=== PATIENT | female | born 1995 | race Caucasian/White ===

== ENCOUNTER 2018-11-08 07:17 | Inpatient (IN) | payer BC ==
[2018-11-08] MEDS ORDERED: Misoprostol 25 MCG (1/4 of 100 MCG) Tab ONE (07:40)
[2018-11-08] MEDS ORDERED: Nalbuphine 20 MG/ML 1 ML Syringe IVPUSH PRN (08:12)
[2018-11-08] MEDS ORDERED: Sodium Chloride 0.9% 10 ML Syringe FLUSH PRN (08:12)
[2018-11-08] MEDS ORDERED: Misoprostol 25 MCG (1/4 of 100 MCG) Tab VAG PRN (08:12)
[2018-11-08] MEDS ORDERED: Ondansetron 4 MG/2 ML SDV IVPUSH PRN ×2 (08:12→14:33)
[2018-11-08] MEDS ORDERED: Oxytocin/Lactated Ringers 10 UNIT/1,000 ML BAG IV SCH ×2 (08:15)
[2018-11-08] MEDS ORDERED: Penicillin G Potassium 5 MILLUNITS in Sodium Chloride 0.9% 100 ML IV ONE ×2 (08:30→12:00)
--- NOTE | 2018-11-08 09:03 | PCM.LDHP ---
L&D History of Present Illness - General Date of Service: 11/08/18 Admit Problem/Dx: Patient Status Order with Admit Dx/Problem 11/08/18 08:13 Patient Status [ADT] Routine Admission Diagnosis/Problem Admission Diagnosis/Problem Source of Information: Patient History Limitations: Reports: No Limitations - History of Present Illness Introduction:: Patient is a 23 y/o at 40 4/7 wks who presents for IOL for post dates. Doing well. No contractions. No LOF. Notes good FM. 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: : 1 Para: 0 LMP (Approximate): Social & Family History - Family History Family Medical History: Noncontributory - Tobacco Use Smoking Status *Q: Never Smoker - Alcohol Use Alcohol Use History: No - Recreational Drug Use Recreational Drug Use: No H&P Review of Systems - Review of Systems: Review Of Systems: See Below General: Reports: No Symptoms Pulmonary: Reports: No Symptoms Cardiovascular: Reports: No Symptoms Gastrointestinal: Reports: No Symptoms Genitourinary: Reports: No Symptoms Musculoskeletal: Reports: No Symptoms Neurological: Reports: No Symptoms L&D Exam - Exam Exam: See Below - Vital Signs Weight: 97.069 kg - OB Specific Contraction Intensity: Irritability Movement: Active Heart Tones: Present Heart Tones per Min: 150 Heart Rate (FHR) Variability: Moderate (6-25 bmp) Presentation: Vertex - Cruz Score Cruz Score Cervix Position: Posterior Cruz Score Consistency: Medium Cruz Score Effacement: 31-50% Cruz Score Dilation: Closed (0.5-1) Cruz Score 's Station: -2 Cruz Score Total: 3 - Exam General: Alert, Oriented, Cooperative Lungs: Clear to Auscultation, Normal Respiratory Effort Cardiovascular: Regular Rate, Regular Rhythm GI/Abdominal Exam: Soft, Non-Tender Genitourinary: Normal external exam Extremities: Normal Inspection Skin: Warm, Dry, Intact - Patient Data Lab Results Last 24 hrs: Laboratory Results - last 24 hr 11/08/18 Range/Units 08:25 WBC 9.60 (3.98-10.04) K/mm3 RBC 4.49 (3.98-5.22) M/mm3 Hgb 11.4 (11.2-15.7) gm/L Hct 35.7 (34.1-44.9) % MCV 79.5 (79.4-94.8) fl MCH 25.4 L (25.6-32.2) pg MCHC 31.9 L (32.2-35.5) g/dl RDW Std Deviation 47.2 H (36.4-46.3) fL Plt Count 299 (182-369) K/mm3 MPV 10.6 (9.4-12.3) fl Result Diagrams: 11/08/18 08:25 - Problem List (1) Postmaturity , 40-42 weeks gestation SNOMED Code(s): 80498187, 130599224 ICD Code: O48.0 - POST-TERM Status: Acute Current Visit: Yes (2) GBS (group B Streptococcus carrier), +RV culture, currently SNOMED Code(s): 1811866488567, 684377887, 5858324226240 ICD Code: O99.820 - STREPTOCOCCUS B CARRIER STATE COMPLICATING Status: Acute Current Visit: Yes Problem List Initiated/Reviewed/Updated: Yes Orders Last 24hrs: Active Orders 24 hr Category Date Time Status Patient Status [ADT] Routine ADT 11/08/18 08:13 Active Activity as Tolerated [RC] PFP Care 11/08/18 08:13 Active Communication Order [RC] ASDIRECTED Care 11/08/18 08:13 Active Communication Order [RC] ASDIRECTED Care 11/08/18 08:13 Active Communication Order [RC] ASDIRECTED Care 11/08/18 08:13 Active Communication Order [RC] ASDIRECTED Care 11/08/18 08:13 Active Heart Tones [RC] ASDIRECTED Care 11/08/18 08:14 Active Monitoring [RC] INTERMITTENT Care 11/08/18 08:13 Active Non Stress Test [RC] PER UNIT ROUTINE Care 11/08/18 08:13 Active Notify Provider [RC] ASDIRECTED Care 11/08/18 08:13 Active Notify Provider [RC] PRN Care 11/08/18 08:13 Active Peripheral IV Care [RC] . DIRECTED Care 11/08/18 08:14 Active Vaginal Exam [RC] ASDIRECTED Care 11/08/18 08:13 Active Vital Signs [RC] ASDIRECTED Care 11/08/18 08:13 Active Regular Diet [DIET] Diet 11/08/18 Breakfast Active RAPID PLASMA REAGIN,RPR [CHEM] Routine Lab 11/08/18 08:25 Received TYPE AND SCREEN [BBK] Routine Lab 11/08/18 08:25 Received Lactated Ringers [Ringers, Lactated] 1,000 ml Med 11/08/18 08:15 Active IV ASDIRECTED Nalbuphine [Nubain] Med 11/08/18 08:12 Active 10 mg IVPUSH Q2H PRN Ondansetron [Zofran] Med 11/08/18 08:12 Active 4 mg IVPUSH Q4H PRN Oxytocin/Lactated Ringers [Pitocin in LR 10 Units/1,000 Med 11/08/18 08:15 Active ML] 10 unit in 1,000 ml IV .CONTINUOUS Oxytocin/Lactated Ringers [Pitocin in LR 10 Units/1,000 Med 11/08/18 08:15 Active ML] 10 unit in 1,000 ml IV TITRATE Penicillin G Potassium [Pfizerpen] 2.5 millunits Med 11/08/18 12:30 Active Sodium Chloride 0.9% [Normal Saline] 100 ml IV Q4H Penicillin G Potassium [Pfizerpen] 5 millunits Med 11/08/18 08:30 Active Sodium Chloride 0.9% [Normal Saline] 100 ml IV ONETIME Sodium Chloride 0.9% [Saline Flush] Med 11/08/18 08:12 Active 10 ml FLUSH ASDIRECTED PRN miSOPROStol [Cytotec] Med 11/08/18 08:12 Active 25 mcg VAG Q4H PRN Electronic Heart Tones Ext w TOCO [WOMSER] Oth 11/08/18 08:13 Ordered Routine Electronic Heart Tones Internal [WOMSER] Per Unit Oth 11/08/18 08:13 Ordered Routine Peripheral IV Insertion Adult [OM.PC] Routine Oth 11/08/18 08:13 Ordered Resuscitation Status Routine Resus Stat 11/08/18 08:12 Ordered Medication Orders Lactated Ringer's (Ringers, Lactated) 1,000 mls @ 40 mls/hr IV ASDIRECTED MP Oxytocin/Lactated Ringer's (Pitocin In Lr 10 Units/1,000 Ml) 10 unit in 1,000 mls @ 12 mls/hr IV TITRATE MP; Protocol Oxytocin/Lactated Ringer's (Pitocin In Lr 10 Units/1,000 Ml) 10 unit in 1,000 mls @ 500 mls/hr IV .CONTINUOUS MP Penicillin G Potassium 5 (millunits/ Sodium Chloride) 100 mls @ 55 mls/hr IV ONETIME ONE Stop: 11/08/18 10:19 Penicillin G Potassium 2.5 (millunits/ Sodium Chloride) 100 mls @ 55 mls/hr IV Q4H MP Misoprostol (Cytotec) 25 mcg VAG Q4H PRN PRN Reason: cervical ripening Nalbuphine HCl (Nubain) 10 mg IVPUSH Q2H PRN PRN Reason: pain Ondansetron HCl (Zofran) 4 mg IVPUSH Q4H PRN PRN Reason: Nausea/Vomiting Sodium Chloride (Saline Flush) 10 ml FLUSH ASDIRECTED PRN PRN Reason: Keep Vein Open Assessment/Plan Comment:: 23 y/o at 40 4/7 wks who presents for IOL * Labs * GBS positive, will eventually start PCN for IOL * Cytotec placed Will attempt art bulb placement later * Pain management per patient preference * Anticipate
--- NOTE | 2018-11-08 12:17 | PCM.PNLD ---
Labor Progress Note - VS & Meds Vital Signs: Last Vital Signs Temp 36.3 C 11/08/18 08:13 Pulse 86 11/08/18 08:13 Resp 18 11/08/18 08:13 BP 132/76 11/08/18 08:13 Pulse Ox Active Medications: Current Medications Lactated Ringer's (Ringers, Lactated) 1,000 mls @ 40 mls/hr IV ASDIRECTED MP Oxytocin/Lactated Ringer's (Pitocin In Lr 10 Units/1,000 Ml) 10 unit in 1,000 mls @ 12 mls/hr IV TITRATE MP; Protocol Oxytocin/Lactated Ringer's (Pitocin In Lr 10 Units/1,000 Ml) 10 unit in 1,000 mls @ 500 mls/hr IV .CONTINUOUS MP Penicillin G Potassium 5 (millunits/ Sodium Chloride) 100 mls @ 55 mls/hr IV ONETIME ONE Stop: 11/08/18 13:49 Penicillin G Potassium 2.5 (millunits/ Sodium Chloride) 100 mls @ 55 mls/hr IV Q4H MP Misoprostol (Cytotec) 25 mcg VAG Q4H PRN PRN Reason: cervical ripening Nalbuphine HCl (Nubain) 10 mg IVPUSH Q2H PRN PRN Reason: pain Ondansetron HCl (Zofran) 4 mg IVPUSH Q4H PRN PRN Reason: Nausea/Vomiting Sodium Chloride (Saline Flush) 10 ml FLUSH ASDIRECTED PRN PRN Reason: Keep Vein Open Discontinued Medications Penicillin G Potassium 5 (millunits/ Sodium Chloride) 100 mls @ 55 mls/hr IV ONETIME ONE Stop: 11/08/18 10:19 Penicillin G Potassium 2.5 (millunits/ Sodium Chloride) 100 mls @ 55 mls/hr IV Q4H MP Misoprostol (Cytotec) Confirm Administered Dose 25 mcg .ROUTE .STK-MED ONE Stop: 11/08/18 07:41 Last Admin: 11/08/18 12:07 Dose: Not Given - Uterine Contractions Uterine Monitoring Mode: External [place] Contraction Intensity: Mild to Moderate Uterine Resting Tone: Soft - Monitoring Monitor Mode: External Ultrasound Heart Rate (FHR) Baseline: 150 Heart Rate (FHR) Variability: Moderate (6-25 bmp) Accelerations: Present, 15x15 Decelerations: Late (rare), Variable Strip Review: Category II - Vaginal Exam Dilation (cm): 2 Effacement (Percent): 75 Station: -2 Cervical Position: Midposition - Labor Progress (Free Text) Labor Progress: Patient with good thinning and rotation of cervix with 1 dose of cytotec. Has had some intermittent late decelerations. Due to this and good change will move on to art bulb placement and pitocin initiation. Art bulb placed without incident
[2018-11-08] MEDS ORDERED: Penicillin G Potassium 2.5 MILLUNITS in Sodium Chloride 0.9% 100 ML IV SCH (12:30)
[2018-11-08] MEDS: Lactated Ringers 1,000 ML IV SCH ×4 (12:41→17:18)
[2018-11-08] MEDS ORDERED: diphenhydrAMINE 50 MG/ML SDV IVPUSH PRN (14:33)
[2018-11-08] MEDS ORDERED: ePHEDrine 50 MG/ML SDV IVPUSH PRN (14:33)
[2018-11-08] MEDS ORDERED: fentaNYL 100 MCG/2 ML SDV EPIDUR PRN (14:33)
[2018-11-08] MEDS ORDERED: fentaNYL 100 MCG/2 ML SDV ONE (14:35)
[2018-11-08] MEDS ORDERED: fentaNYL/Bupivacaine-NS 2 MCG/ML-0.125%/PF 100 ML Bag EP SCH (14:45)
[2018-11-08] MEDS: Penicillin G Potassium 2.5 MILLUNITS in Sodium Chloride 0.9% 100 ML IV SCH ×2 (17:00→20:29)
--- NOTE | 2018-11-08 17:09 | PCM.PNLD ---
Labor Progress Note - VS & Meds Vital Signs: Last Vital Signs Temp 36.3 C 11/08/18 08:13 Pulse 86 11/08/18 08:13 Resp 18 11/08/18 08:13 BP 132/76 11/08/18 08:13 Pulse Ox Active Medications: Current Medications Diphenhydramine HCl (Benadryl) 25 mg IVPUSH Q6H PRN PRN Reason: Pruritis Ephedrine Sulfate (Ephedrine Sulfate) 5 mg IVPUSH ASDIRECTED PRN PRN Reason: Hypotension Fentanyl (Sublimaze) 100 mcg EPIDUR Q3H PRN PRN Reason: Pain Last Admin: 11/08/18 14:59 Dose: 100 mcg Fentanyl/Bupivacaine HCl (Nsevxxth-Qmcoo-Du 2 Mcg/Ml-0.125%) 100 ml EP ASDIRECTED MP Last Admin: 11/08/18 14:59 Dose: 100 ml Lactated Ringer's (Ringers, Lactated) 1,000 mls @ 40 mls/hr IV ASDIRECTED PM Last Admin: 11/08/18 15:26 Dose: 999 mls/hr Oxytocin/Lactated Ringer's (Pitocin In Lr 10 Units/1,000 Ml) 10 unit in 1,000 mls @ 12 mls/hr IV TITRATE MP; Protocol Last Titration: 11/08/18 15:36 Dose: 2 munits/min, 12 mls/hr Oxytocin/Lactated Ringer's (Pitocin In Lr 10 Units/1,000 Ml) 10 unit in 1,000 mls @ 500 mls/hr IV .CONTINUOUS MP Penicillin G Potassium 2.5 (millunits/ Sodium Chloride) 100 mls @ 55 mls/hr IV Q4H MP Nalbuphine HCl (Nubain) 10 mg IVPUSH Q2H PRN PRN Reason: pain Ondansetron HCl (Zofran) 4 mg IVPUSH Q4H PRN PRN Reason: Nausea/Vomiting Ondansetron HCl (Zofran) 4 mg IVPUSH ONETIME PRN PRN Reason: Nausea/Vomiting Sodium Chloride (Saline Flush) 10 ml FLUSH ASDIRECTED PRN PRN Reason: Keep Vein Open Discontinued Medications Fentanyl (Sublimaze) Confirm Administered Dose 100 mcg .ROUTE .STK-MED ONE Stop: 11/08/18 14:36 Last Admin: 11/08/18 15:27 Dose: Not Given Penicillin G Potassium 5 (millunits/ Sodium Chloride) 100 mls @ 55 mls/hr IV ONETIME ONE Stop: 11/08/18 10:19 Last Admin: 11/08/18 14:20 Dose: Not Given Penicillin G Potassium 2.5 (millunits/ Sodium Chloride) 100 mls @ 55 mls/hr IV Q4H [facility] Penicillin G Potassium 5 (millunits/ Sodium Chloride) 100 mls @ 55 mls/hr IV ONETIME ONE Stop: 11/08/18 13:49 Last Admin: 11/08/18 12:41 Dose: 55 mls/hr Misoprostol (Cytotec) Confirm Administered Dose 25 mcg .ROUTE .STK-MED ONE Stop: 11/08/18 07:41 Last Admin: 11/08/18 12:07 Dose: Not Given Misoprostol (Cytotec) 25 mcg VAG Q4H PRN PRN Reason: cervical ripening Last Admin: 11/08/18 07:40 Dose: 25 mcg - Uterine Contractions Uterine Monitoring Mode: External [place] Contraction Intensity: Moderate Uterine Resting Tone: Soft - Monitoring Monitor Mode: External Ultrasound Heart Rate (FHR) Baseline: 145 Heart Rate (FHR) Variability: Moderate (6-25 bmp) Accelerations: Present, 15x15 Decelerations: Late, Intermittent (<50% x 20 min) Strip Review: Category II - Vaginal Exam Dilation (cm): 4 Effacement (Percent): 75 Station: -1 Cervical Position: Midposition - Labor Progress (Free Text) Labor Progress: After patient received epidural had a few deep variables. Pitocin discontinued by nursing staff. Once baby recovered pitocin attempted to be restarted, but then with a string of lates/variables. Discontinued again. Monitored baby for a time without augmentation and now have performed AROM with very scant fluid released and placement of IUPC. Will continue to monitor closely
--- NOTE | 2018-11-08 17:52 | PCM.SN ---
- Free Text/Narrative Note: 1750 Patient feeling more pressure. Exam similar to previous. tracing significantly improved. Now with early decelerations, but no further intermittent late decelerations or variables. Contraction pattern has been close to adequate. Will continue to monitor closely. Will see if pitocin needs to be reinitiated later, but for right now will continue to hold Sravani Irving MD
[2018-11-08] MEDS ORDERED: Bupivacaine 0.25% 10 ML SDV ONE (22:00)
[2018-11-08] MEDS ORDERED: Lidocaine 1.5% with EPINEPHrine 1:200,000 5 ML Amp ONE (22:00)
--- NOTE | 2018-11-08 22:06 | PCM.DEL ---
L & D Note - General Info Date of Service: 11/08/18 - Delivery Note Labor: Induced by ARM, Induced by Oxytocin Cervical Ripening Method: Balloon Device, Misoprostil Delivery Outcome: Livebirth Infant Delivery Method: Spontaneous Vaginal Delivery-Single Delivery Mode: Spontaneous Presentation: Right Occiput Anterior (ARABELLA) Nuchal Cord: None Anesthesia Type: Epidural Amniotic Fluid Description: Meconium Stained Episiotomy Type: None Laceration: 2nd Degree, Perineal Suture type: Vicryl Suture size: 2-0 Placenta: Intact, Spontaneous Cord: 3 Vessels Estimated Blood Loss: 200 [place]: Bulb Syringe, Stimulated, Warmed, [place] Used, Warmer Used Delivery Comments (Free Text/Narrative):: Patient found to be complete and began pushing. With maternal pushing effort head delivered from ARABELLA presentation. No nuchal cord present. With gentle downward traction the shoulders and body delivered. placed on maternal abdomen. Cord clamped and cut. Cord blood obtained. Placenta allowed time to separate and expelled intact. Inspection of the perineum showed a 2nd degree laceration which was repaired with a 2-0 vicryl in the typical fashion. - General Info Date of Service: 11/08/18 - Patient Data Vitals - Most Recent: Last Vital Signs Temp 36.3 C 11/08/18 08:13 Pulse 86 11/08/18 08:13 Resp 18 11/08/18 08:13 BP 132/76 11/08/18 08:13 Pulse Ox Weight - Most Recent: 97.069 kg I&O - Last 24 Hours: Intake & Output 11/08/18 11/08/18 11/08/18 06:59 14:59 22:59 Intake Total 4100 Output Total 250 Balance 3850 Lab Results Last 24 Hours: Laboratory Results - last 24 hr 11/08/18 11/08/18 Range/Units 08:25 08:25 WBC 9.60 (3.98-10.04) K/mm3 RBC 4.49 (3.98-5.22) M/mm3 Hgb 11.4 (11.2-15.7) gm/L Hct 35.7 (34.1-44.9) % MCV 79.5 (79.4-94.8) fl MCH 25.4 L (25.6-32.2) pg MCHC 31.9 L (32.2-35.5) g/dl RDW Std Deviation 47.2 H (36.4-46.3) fL Plt Count 299 (182-369) K/mm3 MPV 10.6 (9.4-12.3) fl Blood Type O POSITIVE Gel Antibody Screen Negative Med Orders - Current: Current Medications Diphenhydramine HCl (Benadryl) 25 mg IVPUSH Q6H PRN PRN Reason: Pruritis Ephedrine Sulfate (Ephedrine Sulfate) 5 mg IVPUSH ASDIRECTED PRN PRN Reason: Hypotension Fentanyl (Sublimaze) 100 mcg EPIDUR Q3H PRN PRN Reason: Pain Last Admin: 11/08/18 14:59 Dose: 100 mcg Fentanyl/Bupivacaine HCl (Pffckzsp-Mjuke-Bp 2 Mcg/Ml-0.125%) 100 ml EP ASDIRECTED MP Last Admin: 11/08/18 14:59 Dose: 100 ml Lactated Ringer's (Ringers, Lactated) 1,000 mls @ 40 mls/hr IV ASDIRECTED MP Last Admin: 11/08/18 17:18 Dose: 999 mls/hr Oxytocin/Lactated Ringer's (Pitocin In Lr 10 Units/1,000 Ml) 10 unit in 1,000 mls @ 12 mls/hr IV TITRATE MP; Protocol Last Titration: 11/08/18 21:47 Dose: 500 mls/hr Oxytocin/Lactated Ringer's (Pitocin In Lr 10 Units/1,000 Ml) 10 unit in 1,000 mls @ 500 mls/hr IV .CONTINUOUS MP Penicillin G Potassium 2.5 (millunits/ Sodium Chloride) 100 mls @ 55 mls/hr IV Q4H MP Last Admin: 11/08/18 20:29 Dose: 55 mls/hr Nalbuphine HCl (Nubain) 10 mg IVPUSH Q2H PRN PRN Reason: pain Ondansetron HCl (Zofran) 4 mg IVPUSH Q4H PRN PRN Reason: Nausea/Vomiting Ondansetron HCl (Zofran) 4 mg IVPUSH ONETIME PRN PRN Reason: Nausea/Vomiting Sodium Chloride (Saline Flush) 10 ml FLUSH ASDIRECTED PRN PRN Reason: Keep Vein Open Discontinued Medications Fentanyl (Sublimaze) Confirm Administered Dose 100 mcg .ROUTE .[facility]-MED ONE Stop: 11/08/18 14:36 Last Admin: 11/08/18 15:27 Dose: Not Given Penicillin G Potassium 5 (millunits/ Sodium Chloride) 100 mls @ 55 mls/hr IV ONETIME ONE Stop: 11/08/18 10:19 Last Admin: 11/08/18 14:20 Dose: Not Given Penicillin G Potassium 2.5 (millunits/ Sodium Chloride) 100 mls @ 55 mls/hr IV Q4H MP Penicillin G Potassium 5 (millunits/ Sodium Chloride) 100 mls @ 55 mls/hr IV ONETIME ONE Stop: 11/08/18 13:49 Last Admin: 11/08/18 12:41 Dose: 55 mls/hr Misoprostol (Cytotec) Confirm Administered Dose 25 mcg .ROUTE .STK-MED ONE Stop: 11/08/18 07:41 Last Admin: 11/08/18 12:07 Dose: Not Given Misoprostol (Cytotec) 25 mcg VAG Q4H PRN PRN Reason: cervical ripening Last Admin: 11/08/18 07:40 Dose: 25 mcg - Problem List & Annotations (1) Postmaturity , 40-42 weeks gestation SNOMED Code(s): 30452410, 487555019 Code(s): O48.0 - POST-TERM Status: Acute Current Visit: Yes (2) GBS (group B Streptococcus carrier), +RV culture, currently SNOMED Code(s): 3828533426791, 273923481, 3153109752909 Code(s): O99.820 - STREPTOCOCCUS B CARRIER STATE COMPLICATING Status: Acute Current Visit: Yes (3) Vaginal delivery SNOMED Code(s): 120015307 Code(s): O80 - ENCOUNTER FOR FULL-TERM UNCOMPLICATED DELIVERY Status: Acute Current Visit: Yes - Problem List Review Problem List Initiated/Reviewed/Updated: Yes - My Orders Last 24 Hours: My Active Orders 11/08/18 08:12 Nalbuphine [Nubain] 10 mg IVPUSH Q2H PRN Ondansetron [Zofran] 4 mg IVPUSH Q4H PRN Sodium Chloride 0.9% [Saline Flush] 10 ml FLUSH ASDIRECTED PRN Resuscitation Status Routine 11/08/18 08:13 Patient Status [ADT] Routine Activity as Tolerated [RC] PFP Communication Order [RC] ASDIRECTED Communication Order [RC] ASDIRECTED Communication Order [RC] ASDIRECTED Communication Order [RC] ASDIRECTED Monitoring [RC] INTERMITTENT Non Stress Test [RC] PER UNIT ROUTINE Notify Provider [RC] ASDIRECTED Notify Provider [RC] PRN Vaginal Exam [RC] ASDIRECTED Vital Signs [RC] ASDIRECTED Electronic Heart Tones Ext w TOCO [WOMSER] Routine Electronic Heart Tones Internal [WOMSER] Per Unit Routine Peripheral IV Insertion Adult [OM.PC] Routine 11/08/18 08:14 Heart Tones [RC] ASDIRECTED Peripheral IV Care [RC] . DIRECTED 11/08/18 08:15 Lactated Ringers [Ringers, Lactated] 1,000 ml IV ASDIRECTED Oxytocin/Lactated Ringers [Pitocin in LR 10 Units/1,000 ML] 10 unit in 1,000 ml IV .CONTINUOUS Oxytocin/Lactated Ringers [Pitocin in LR 10 Units/1,000 ML] 10 unit in 1,000 ml IV TITRATE 11/08/18 08:25 PATIENT RETYPE [BBK] Routine RAPID PLASMA REAGIN,RPR [CHEM] Routine TYPE AND SCREEN [BBK] Routine 11/08/18 16:00 Penicillin G Potassium [Pfizerpen] 2.5 millunits Sodium Chloride 0.9% [Normal Saline] 100 ml IV Q4H 11/08/18 Breakfast Regular Diet [DIET] - Assessment Assessment:: 23 y/o G1 now P1001 PPD#0 from at 40 4/7 wks - Plan Plan:: * Routine cares * encourage breast feeding * Discharge home tomorrow
[2018-11-08] MEDS ORDERED: Witch Hazel Medicated Pads 100/Jar TOP PRN (22:23)
[2018-11-08] MEDS ORDERED: Benzocaine/Menthol 20%-0.5% Spray 56 GM Canister TOP PRN (22:23)
[2018-11-08] MEDS ORDERED: Ibuprofen 600 MG Tab PO PRN (22:23)
[2018-11-08] MEDS ORDERED: Docusate Sodium 100 MG Cap PO PRN (22:23)
[2018-11-08] MEDS ORDERED: Lanolin 100% Cream 7 GM Tube TOP PRN (22:23)
[2018-11-08] MEDS ORDERED: Acetaminophen 325 MG Tab PO PRN (22:23)
--- NOTE | 2018-11-09 09:03 | PCM.PREANE ---
Preanesthetic Assessment - Procedure Proposed Procedure: ANGELIKA - Anesthesia/Transfusion/Family Hx Anesthesia History: Prior Anesthesia Without Reaction Family History of Anesthesia Reaction: No Transfusion History: No Prior Transfusion(s) - Review of Systems General: No Symptoms Pulmonary: No Symptoms Cardiovascular: No Symptoms Gastrointestinal: No Symptoms Neurological: No Symptoms Other: Reports: None - Physical Assessment NPO Status Date: 11/08/18 NPO Status Time: 12:00 Pulse: 76 O2 Sat by Pulse Oximetry: 98 Respiratory Rate: 18 Blood Pressure: 128/61 Temperature: 36.9 C Vital Signs: Last Vital Signs Temp 36.9 C 11/09/18 06:34 Pulse 76 11/09/18 06:34 Resp 18 11/09/18 06:34 BP 128/61 11/09/18 06:34 Pulse Ox 98 11/09/18 06:34 Height: 1.78 m Weight: 97.069 kg ASA Class: 2 Mental Status: Alert & Oriented x3 Airway Class: Mallampati = 2 Dentition: Reports: Normal Dentition Thyro-Mental Finger Breadths: 3 Mouth Opening Finger Breadths: 3 ROM/Head Extension: Full Lungs: Clear to Auscultation, Normal Respiratory Effort Cardiovascular: Regular Rate, Regular Rhythm - Lab Values: Laboratory Last Values WBC 9.60 K/mm3 (3.98-10.04) 11/08/18 08:25 RBC 4.49 M/mm3 (3.98-5.22) 11/08/18 08:25 Hgb 11.4 gm/L (11.2-15.7) 11/08/18 08:25 Hct 35.7 % (34.1-44.9) 11/08/18 08:25 MCV 79.5 fl (79.4-94.8) 11/08/18 08:25 MCH 25.4 pg (25.6-32.2) L 11/08/18 08:25 MCHC 31.9 g/dl (32.2-35.5) L 11/08/18 08:25 RDW Std Deviation 47.2 fL (36.4-46.3) H 11/08/18 08:25 Plt Count 299 K/mm3 (182-369) 11/08/18 08:25 MPV 10.6 fl (9.4-12.3) 11/08/18 08:25 Blood Type O POSITIVE 11/08/18 08:25 Gel Antibody Screen Negative 11/08/18 08:25 - Allergies Allergies/Adverse Reactions: Allergies Allergy/AdvReac Type Severity Reaction Status Date / Time No Known Allergies Allergy Verified 11/08/18 08:21 - Blood Blood Available: No Product(s) Available: None - Anesthesia Plan Pre-Op Medication Ordered: None - Acknowledgements Anesthesia Type Planned: Epidural Pt an Appropriate Candidate for the Planned Anesthesia: Yes Alternatives and Risks of Anesthesia Discussed w Pt/Guardian: Yes Pt/Guardian Understands and Agrees with Anesthesia Plan: Yes PreAnesthesia Questionnaire - Past Health History Medical/Surgical History: Denies Medical/Surgical History QA TECH History: Reports: - SUBSTANCE USE Smoking Status *Q: Never Smoker Recreational Drug Use History: No - HOME MEDS Home Medications: Home Meds Vits #93/Iron Fum/FA [ Formula Tablet] 1 tab PO DAILY 11/08/18 [History] - CURRENT (IN HOUSE) MEDS Current Meds: Current Medications Acetaminophen (Tylenol) 650 mg PO Q4H PRN PRN Reason: mild pain or fever Benzocaine/Menthol (Dermoplast Pain Relief [place]) 0 gm TOP ASDIRECTED PRN PRN Reason: Perineal Comfort Measure Last Admin: 11/08/18 23:35 Dose: 1 applic Docusate Sodium (Colace) 100 mg PO BID PRN PRN Reason: Constipation Emollient Ointment (Lansinoh Hpa) 0 gm TOP ASDIRECTED PRN PRN Reason: Sore Nipples Ibuprofen (Motrin) 600 mg PO Q6H PRN PRN Reason: Mild pain or fever [place] (Tucks) 1 pad TOP ASDIRECTED PRN PRN Reason: Hemorrhoid pain Last Admin: 11/08/18 23:35 Dose: 1 pad Discontinued Medications Diphenhydramine HCl (Benadryl) 25 mg IVPUSH Q6H PRN PRN Reason: Pruritis Ephedrine Sulfate (Ephedrine Sulfate) 5 mg IVPUSH ASDIRECTED PRN PRN Reason: Hypotension Fentanyl (Sublimaze) 100 mcg EPIDUR Q3H PRN PRN Reason: Pain Last Admin: 11/08/18 14:59 Dose: 100 mcg Fentanyl (Sublimaze) Confirm Administered Dose 100 mcg .ROUTE .STK-MED ONE Stop: 11/08/18 14:36 Last Admin: 11/08/18 15:27 Dose: Not Given Fentanyl/Bupivacaine HCl (Rwywpiqu-Wcvbg-Vs 2 Mcg/Ml-0.125%) 100 ml EP ASDIRECTED [facility] Last Admin: 11/08/18 14:59 Dose: 100 ml Lactated Ringer's (Ringers, Lactated) 1,000 mls @ 40 mls/hr IV ASDIRECTED [facility] Last Admin: 11/08/18 17:18 Dose: 999 mls/hr Oxytocin/Lactated Ringer's (Pitocin In Lr 10 Units/1,000 Ml) 10 unit in 1,000 mls @ 12 mls/hr IV TITRATE MP; Protocol Last Titration: 11/08/18 21:47 Dose: 500 mls/hr Oxytocin/Lactated Ringer's (Pitocin In Lr 10 Units/1,000 Ml) 10 unit in 1,000 mls @ 500 mls/hr IV .CONTINUOUS MP Penicillin G Potassium 5 (millunits/ Sodium Chloride) 100 mls @ 55 mls/hr IV ONETIME ONE Stop: 11/08/18 10:19 Last Admin: 11/08/18 14:20 Dose: Not Given Penicillin G Potassium 2.5 (millunits/ Sodium Chloride) 100 mls @ 55 mls/hr IV Q4H MP Penicillin G Potassium 5 (millunits/ Sodium Chloride) 100 mls @ 55 mls/hr IV ONETIME ONE Stop: 11/08/18 13:49 Last Admin: 11/08/18 12:41 Dose: 55 mls/hr Penicillin G Potassium 2.5 (millunits/ Sodium Chloride) 100 mls @ 55 mls/hr IV Q4H [facility] Last Admin: 11/08/18 20:29 Dose: 55 mls/hr Misoprostol (Cytotec) Confirm Administered Dose 25 mcg .ROUTE .STK-MED ONE Stop: 11/08/18 07:41 Last Admin: 11/08/18 12:07 Dose: Not Given Misoprostol (Cytotec) 25 mcg VAG Q4H PRN PRN Reason: cervical ripening Last Admin: 11/08/18 07:40 Dose: 25 mcg Nalbuphine HCl (Nubain) 10 mg IVPUSH Q2H PRN PRN Reason: pain Ondansetron HCl (Zofran) 4 mg IVPUSH Q4H PRN PRN Reason: Nausea/Vomiting Ondansetron HCl (Zofran) 4 mg IVPUSH ONETIME PRN PRN Reason: Nausea/Vomiting Sodium Chloride (Saline Flush) 10 ml FLUSH ASDIRECTED PRN PRN Reason: Keep Vein Open
--- NOTE | 2018-11-09 09:19 | PCM48HPAN ---
Post Anesthesia Note - EVALUATION WITHIN 48HRS OF ANESTHETIC Vital Signs in Normal Range: Yes Patient Participated in Evaluation: Yes Respiratory Function Stable: Yes Airway Patent: Yes Cardiovascular Function Stable: Yes Hydration Status Stable: Yes Pain Control Satisfactory: Yes Nausea and Vomiting Control Satisfactory: Yes Mental Status Recovered: Yes
--- NOTE | 2018-11-09 09:20 | PCM.PNPP ---
- General Info Date of Service: 11/09/18 Functional Status: Reports: Pain Controlled, Tolerating Diet, Ambulating, Urinating - Review of Systems General: Reports: No Symptoms Pulmonary: Reports: No Symptoms Cardiovascular: Reports: No Symptoms Gastrointestinal: Reports: No Symptoms Genitourinary: Reports: No Symptoms Musculoskeletal: Reports: No Symptoms Neurological: Reports: No Symptoms - Patient Data Vital Signs - Most Recent: Last Vital Signs Temp 36.9 C 11/09/18 09:02 Pulse 76 11/09/18 09:02 Resp 18 11/09/18 09:02 BP 128/61 11/09/18 09:02 Pulse Ox 98 11/09/18 09:02 Weight - Most Recent: 97.069 kg I&O - Last 24 Hours: Intake & Output 11/08/18 11/09/18 11/09/18 22:59 06:59 14:59 Intake Total 4340 Output Total 250 Balance 4090 Lab Results - Last 24 Hours: Laboratory Results - last 24 hr 11/08/18 Range/Units 08:25 Blood Type O POSITIVE Gel Antibody Screen Negative Med Orders - Current: Current Medications Acetaminophen (Tylenol) 650 mg PO Q4H PRN PRN Reason: mild pain or fever Benzocaine/Menthol (Dermoplast Pain Relief [place]) 0 gm TOP ASDIRECTED PRN PRN Reason: Perineal Comfort Measure Last Admin: 11/08/18 23:35 Dose: 1 applic Docusate Sodium (Colace) 100 mg PO BID PRN PRN Reason: Constipation Emollient Ointment (Lansinoh Hpa) 0 gm TOP ASDIRECTED PRN PRN Reason: Sore Nipples Ibuprofen (Motrin) 600 mg PO Q6H PRN PRN Reason: Mild pain or fever [place] (Tucks) 1 pad TOP ASDIRECTED PRN PRN Reason: Hemorrhoid pain Last Admin: 11/08/18 23:35 Dose: 1 pad Discontinued Medications Diphenhydramine HCl (Benadryl) 25 mg IVPUSH Q6H PRN PRN Reason: Pruritis Ephedrine Sulfate (Ephedrine Sulfate) 5 mg IVPUSH ASDIRECTED PRN PRN Reason: Hypotension Fentanyl (Sublimaze) 100 mcg EPIDUR Q3H PRN PRN Reason: Pain Last Admin: 11/08/18 14:59 Dose: 100 mcg Fentanyl (Sublimaze) Confirm Administered Dose 100 mcg .ROUTE .STK-MED ONE Stop: 11/08/18 14:36 Last Admin: 11/08/18 15:27 Dose: Not Given Fentanyl/Bupivacaine HCl (Natnqjoc-Emcxv-Yd 2 Mcg/Ml-0.125%) 100 ml EP ASDIRECTED MP Last Admin: 11/08/18 14:59 Dose: 100 ml Lactated Ringer's (Ringers, Lactated) 1,000 mls @ 40 mls/hr IV ASDIRECTED MP Last Admin: 11/08/18 17:18 Dose: 999 mls/hr Oxytocin/Lactated Ringer's (Pitocin In Lr 10 Units/1,000 Ml) 10 unit in 1,000 mls @ 12 mls/hr IV TITRATE MP; Protocol Last Titration: 11/08/18 21:47 Dose: 500 mls/hr Oxytocin/Lactated Ringer's (Pitocin In Lr 10 Units/1,000 Ml) 10 unit in 1,000 mls @ 500 mls/hr IV .CONTINUOUS MP Penicillin G Potassium 5 (millunits/ Sodium Chloride) 100 mls @ 55 mls/hr IV ONETIME ONE Stop: 11/08/18 10:19 Last Admin: 11/08/18 14:20 Dose: Not Given Penicillin G Potassium 2.5 (millunits/ Sodium Chloride) 100 mls @ 55 mls/hr IV Q4H MP Penicillin G Potassium 5 (millunits/ Sodium Chloride) 100 mls @ 55 mls/hr IV ONETIME ONE Stop: 11/08/18 13:49 Last Admin: 11/08/18 12:41 Dose: 55 mls/hr Penicillin G Potassium 2.5 (millunits/ Sodium Chloride) 100 mls @ 55 mls/hr IV Q4H MP Last Admin: 11/08/18 20:29 Dose: 55 mls/hr Misoprostol (Cytotec) Confirm Administered Dose 25 mcg .ROUTE .STK-MED ONE Stop: 11/08/18 07:41 Last Admin: 11/08/18 12:07 Dose: Not Given Misoprostol (Cytotec) 25 mcg VAG Q4H PRN PRN Reason: cervical ripening Last Admin: 11/08/18 07:40 Dose: 25 mcg Nalbuphine HCl (Nubain) 10 mg IVPUSH Q2H PRN PRN Reason: pain Ondansetron HCl (Zofran) 4 mg IVPUSH Q4H PRN PRN Reason: Nausea/Vomiting Ondansetron HCl (Zofran) 4 mg IVPUSH ONETIME PRN PRN Reason: Nausea/Vomiting Sodium Chloride (Saline Flush) 10 ml FLUSH ASDIRECTED PRN PRN Reason: Keep Vein Open - Infant Interaction Infant Disposition, : [place] in Room with Family Infant Interaction: Holding Infant Feeding: Attempted ; Nursed Fair/Poor Support Person: , Mother, Sister - Recovery Exam Fundal Tone: Firm Fundal Level: At Umbilicus Lochia Color: Rubra/Red Perineum Description: Other (see below) Other Perinuem Description: 2nd degree with repair Episiotomy/Laceration: Approximated Bladder Status: Voiding - Exam General: Alert, Oriented, Cooperative GI/Abdominal Exam: Soft, Non-Tender Extremities: Normal Inspection Skin: Warm, Dry, Intact - Problem List & Annotations (1) Postmaturity , 40-42 weeks gestation SNOMED Code(s): 02722202, 455524923 Code(s): O48.0 - POST-TERM Status: Acute Current Visit: Yes (2) GBS (group B Streptococcus carrier), +RV culture, currently SNOMED Code(s): 1022925322484, 547800860, 4433952461595 Code(s): O99.820 - STREPTOCOCCUS B CARRIER STATE COMPLICATING Status: Acute Current Visit: Yes (3) Vaginal delivery SNOMED Code(s): 085837985 Code(s): O80 - ENCOUNTER FOR FULL-TERM UNCOMPLICATED DELIVERY Status: Acute Current Visit: Yes - Problem List Review Problem List Initiated/Reviewed/Updated: Yes - My Orders Last 24 Hours: My Active Orders 11/08/18 08:25 RAPID PLASMA REAGIN,RPR [CHEM] Routine 11/08/18 22:23 Activity as Tolerated [RC] PER UNIT ROUTINE Vital Signs [RC] 03,09,15,21 Acetaminophen [Tylenol] 650 mg PO Q4H PRN Benzocaine/Menthol [Dermoplast Pain Relief [place]] See Dose Instructions TOP ASDIRECTED PRN Docusate Sodium [Colace] 100 mg PO BID PRN Ibuprofen [Motrin] 600 mg PO Q6H PRN Lanolin [Lansinoh HPA] See Dose Instructions TOP ASDIRECTED PRN [place] [Tucks] 1 pad TOP ASDIRECTED PRN Assess Lochia [WOMSER] Per Unit Routine Assess Uterine Involution [WOMSER] Per Unit Routine Breast Pump [WOMSER] Per Unit Routine Heat Therapy [OM.PC] PRN Ice Therapy [OM.PC] Per Unit Routine Perineal Care [OM.PC] Per Unit Routine Peripheral IV Discontinue [OM.PC] Routine Sitz Bath [OM.PC] Per Unit Routine 11/09/18 22:23 Heat Therapy [OM.PC] PRN - Assessment Assessment:: 23 y/o G1 now P1001 PPD#1 from at 40 4/7 wks - Plan Plan:: * Routine cares * encourage breast feeding * Discharge home tomorrow
--- NOTE | 2018-11-10 06:55 | PCM.DCSUM1 ---
Discharge Summary - Discharge Data Discharge Date: 11/10/18 Discharge Disposition: Home, Self-Care 01 Condition: Good - Discharge Diagnosis/Problem(s) (1) Postmaturity , 40-42 weeks gestation SNOMED Code(s): 31133845, 242233578 ICD Code: O48.0 - POST-TERM Status: Acute Current Visit: Yes (2) GBS (group B Streptococcus carrier), +RV culture, currently SNOMED Code(s): 0824036199715, 043437519, 6781885979663 ICD Code: O99.820 - STREPTOCOCCUS B CARRIER STATE COMPLICATING Status: Acute Current Visit: Yes (3) Vaginal delivery SNOMED Code(s): 293492552 ICD Code: O80 - ENCOUNTER FOR FULL-TERM UNCOMPLICATED DELIVERY Status: Acute Current Visit: Yes - Patient Summary/Data Complications: None Consults: None Recommended Follow-up Testing/Procedures: Follow up in 3-6 weeks for check Hospital Course: 23 y/o at 40 4/7 wks who presents for IOL for dates. This was done with Cytotec, art bulb, and pitocin. She made good progress throughout the day and underwent an uncomplicated . See delivery note. she did well and was discharged home on PPD#2 - Patient Instructions Diet: Regular Diet as Tolerated Activity: As Tolerated Activity, Other: Pelvic rest for 6 weeks Driving: May Drive Today Showering/Bathing: May Shower Showering/Bathing, Other: May Bathe Notify Provider of: Fever, Increased Pain, Swelling and Redness, Drainage, Nausea and/or Vomiting - Discharge Plan *PRESCRIPTION DRUG MONITORING PROGRAM REVIEWED*: Not Applicable *COPY OF PRESCRIPTION DRUG MONITORING REPORT IN PATIENT [place]: Not Applicable Home Medications: Home Meds Vits #93/Iron Fum/FA [ Formula Tablet] 1 tab PO DAILY 11/08/18 [History] Docusate Sodium [Colace] 100 mg PO BID PRN cap 11/09/18 [Rx] Ibuprofen [Motrin] 600 mg PO Q6H PRN tablet 11/09/18 [Rx] Patient Handouts: Vaginal Delivery, Care After Referrals: Sravani Irving MD [Primary Care Provider] - (3-6 weeks for check ) - Discharge Summary/Plan Comment DC Time >30 min.: No - Patient Data Vitals - Most Recent: Last Vital Signs Temp 36.6 C 11/09/18 21:11 Pulse 64 11/10/18 03:40 Resp 16 11/10/18 03:40 BP 131/71 11/10/18 03:40 Pulse Ox 99 11/10/18 03:40 Weight - Most Recent: 97.069 kg I&O - Last 24 hours: Intake & Output 11/09/18 11/09/18 11/10/18 14:59 22:59 06:59 Intake Total 240 240 Balance 240 240 Med Orders - Current: Current Medications Acetaminophen (Tylenol) 650 mg PO Q4H PRN PRN Reason: mild pain or fever Benzocaine/Menthol (Dermoplast Pain Relief [place]) 0 gm TOP ASDIRECTED PRN PRN Reason: Perineal Comfort Measure Last Admin: 11/08/18 23:35 Dose: 1 applic Docusate Sodium (Colace) 100 mg PO BID PRN PRN Reason: Constipation Emollient Ointment (Lansinoh Hpa) 0 gm TOP ASDIRECTED PRN PRN Reason: Sore Nipples Ibuprofen (Motrin) 600 mg PO Q6H PRN PRN Reason: Mild pain or fever Last Admin: 11/09/18 09:19 Dose: 600 mg [place] (Tucks) 1 pad TOP ASDIRECTED PRN PRN Reason: Hemorrhoid pain Last Admin: 11/08/18 23:35 Dose: 1 pad Discontinued Medications Diphenhydramine HCl (Benadryl) 25 mg IVPUSH Q6H PRN PRN Reason: Pruritis Ephedrine Sulfate (Ephedrine Sulfate) 5 mg IVPUSH ASDIRECTED PRN PRN Reason: Hypotension Fentanyl (Sublimaze) 100 mcg EPIDUR Q3H PRN PRN Reason: Pain Last Admin: 11/08/18 14:59 Dose: 100 mcg Fentanyl (Sublimaze) Confirm Administered Dose 100 mcg .ROUTE .STK-MED ONE Stop: 11/08/18 14:36 Last Admin: 11/08/18 15:27 Dose: Not Given Fentanyl/Bupivacaine HCl (Whmwkuue-Wzdiv-Hn 2 Mcg/Ml-0.125%) 100 ml EP ASDIRECTED MP Last Admin: 11/08/18 14:59 Dose: 100 ml Lactated Ringer's (Ringers, Lactated) 1,000 mls @ 40 mls/hr IV ASDIRECTED MP Last Admin: 11/08/18 17:18 Dose: 999 mls/hr Oxytocin/Lactated Ringer's (Pitocin In Lr 10 Units/1,000 Ml) 10 unit in 1,000 mls @ 12 mls/hr IV TITRATE MP; Protocol Last Titration: 11/08/18 21:47 Dose: 500 mls/hr Oxytocin/Lactated Ringer's (Pitocin In Lr 10 Units/1,000 Ml) 10 unit in 1,000 mls @ 500 mls/hr IV .CONTINUOUS MP Penicillin G Potassium 5 (millunits/ Sodium Chloride) 100 mls @ 55 mls/hr IV ONETIME ONE Stop: 11/08/18 10:19 Last Admin: 11/08/18 14:20 Dose: Not Given Penicillin G Potassium 2.5 (millunits/ Sodium Chloride) 100 mls @ 55 mls/hr IV Q4H MP Penicillin G Potassium 5 (millunits/ Sodium Chloride) 100 mls @ 55 mls/hr IV ONETIME ONE Stop: 11/08/18 13:49 Last Admin: 11/08/18 12:41 Dose: 55 mls/hr Penicillin G Potassium 2.5 (millunits/ Sodium Chloride) 100 mls @ 55 mls/hr IV Q4H COUNTS INCLUDE 234 BEDS AT [facility] Last Admin: 11/08/18 20:29 Dose: 55 mls/hr Misoprostol (Cytotec) Confirm Administered Dose 25 mcg .ROUTE .STK-MED ONE Stop: 11/08/18 07:41 Last Admin: 11/08/18 12:07 Dose: Not Given Misoprostol (Cytotec) 25 mcg VAG Q4H PRN PRN Reason: cervical ripening Last Admin: 11/08/18 07:40 Dose: 25 mcg Nalbuphine HCl (Nubain) 10 mg IVPUSH Q2H PRN PRN Reason: pain Ondansetron HCl (Zofran) 4 mg IVPUSH Q4H PRN PRN Reason: Nausea/Vomiting Ondansetron HCl (Zofran) 4 mg IVPUSH ONETIME PRN PRN Reason: Nausea/Vomiting Sodium Chloride (Saline Flush) 10 ml FLUSH ASDIRECTED PRN PRN Reason: Keep Vein Open
--- NOTE | 2018-11-10 06:55 | PCM.PNPP ---
- General Info Date of Service: 11/10/18 Functional Status: Reports: Pain Controlled, Tolerating Diet, Ambulating, Urinating - Review of Systems General: Reports: No Symptoms Pulmonary: Reports: No Symptoms Cardiovascular: Reports: No Symptoms Gastrointestinal: Reports: No Symptoms Genitourinary: Reports: No Symptoms Musculoskeletal: Reports: No Symptoms Neurological: Reports: No Symptoms - Patient Data Vital Signs - Most Recent: Last Vital Signs Temp 36.6 C 11/09/18 21:11 Pulse 64 11/10/18 03:40 Resp 16 11/10/18 03:40 BP 131/71 11/10/18 03:40 Pulse Ox 99 11/10/18 03:40 Weight - Most Recent: 97.069 kg I&O - Last 24 Hours: Intake & Output 11/09/18 11/09/18 11/10/18 14:59 22:59 06:59 Intake Total 240 240 Balance 240 240 Med Orders - Current: Current Medications Acetaminophen (Tylenol) 650 mg PO Q4H PRN PRN Reason: mild pain or fever Benzocaine/Menthol (Dermoplast Pain Relief [place]) 0 gm TOP ASDIRECTED PRN PRN Reason: Perineal Comfort Measure Last Admin: 11/08/18 23:35 Dose: 1 applic Docusate Sodium (Colace) 100 mg PO BID PRN PRN Reason: Constipation Emollient Ointment (Lansinoh Hpa) 0 gm TOP ASDIRECTED PRN PRN Reason: Sore Nipples Ibuprofen (Motrin) 600 mg PO Q6H PRN PRN Reason: Mild pain or fever Last Admin: 11/09/18 09:19 Dose: 600 mg [place] (Tucks) 1 pad TOP ASDIRECTED PRN PRN Reason: Hemorrhoid pain Last Admin: 11/08/18 23:35 Dose: 1 pad Discontinued Medications Diphenhydramine HCl (Benadryl) 25 mg IVPUSH Q6H PRN PRN Reason: Pruritis Ephedrine Sulfate (Ephedrine Sulfate) 5 mg IVPUSH ASDIRECTED PRN PRN Reason: Hypotension Fentanyl (Sublimaze) 100 mcg EPIDUR Q3H PRN PRN Reason: Pain Last Admin: 11/08/18 14:59 Dose: 100 mcg Fentanyl (Sublimaze) Confirm Administered Dose 100 mcg .ROUTE .STK-MED ONE Stop: 11/08/18 14:36 Last Admin: 11/08/18 15:27 Dose: Not Given Fentanyl/Bupivacaine HCl (Jhxillmo-Mbtgy-Cm 2 Mcg/Ml-0.125%) 100 ml EP ASDIRECTED MP Last Admin: 11/08/18 14:59 Dose: 100 ml Lactated Ringer's (Ringers, Lactated) 1,000 mls @ 40 mls/hr IV ASDIRECTED MP Last Admin: 11/08/18 17:18 Dose: 999 mls/hr Oxytocin/Lactated Ringer's (Pitocin In Lr 10 Units/1,000 Ml) 10 unit in 1,000 mls @ 12 mls/hr IV TITRATE MP; Protocol Last Titration: 11/08/18 21:47 Dose: 500 mls/hr Oxytocin/Lactated Ringer's (Pitocin In Lr 10 Units/1,000 Ml) 10 unit in 1,000 mls @ 500 mls/hr IV .CONTINUOUS MP Penicillin G Potassium 5 (millunits/ Sodium Chloride) 100 mls @ 55 mls/hr IV ONETIME ONE Stop: 11/08/18 10:19 Last Admin: 11/08/18 14:20 Dose: Not Given Penicillin G Potassium 2.5 (millunits/ Sodium Chloride) 100 mls @ 55 mls/hr IV Q4H MP Penicillin G Potassium 5 (millunits/ Sodium Chloride) 100 mls @ 55 mls/hr IV ONETIME ONE Stop: 11/08/18 13:49 Last Admin: 11/08/18 12:41 Dose: 55 mls/hr Penicillin G Potassium 2.5 (millunits/ Sodium Chloride) 100 mls @ 55 mls/hr IV Q4H [facility] Last Admin: 11/08/18 20:29 Dose: 55 mls/hr Misoprostol (Cytotec) Confirm Administered Dose 25 mcg .ROUTE .STK-MED ONE Stop: 11/08/18 07:41 Last Admin: 11/08/18 12:07 Dose: Not Given Misoprostol (Cytotec) 25 mcg VAG Q4H PRN PRN Reason: cervical ripening Last Admin: 11/08/18 07:40 Dose: 25 mcg Nalbuphine HCl (Nubain) 10 mg IVPUSH Q2H PRN PRN Reason: pain Ondansetron HCl (Zofran) 4 mg IVPUSH Q4H PRN PRN Reason: Nausea/Vomiting Ondansetron HCl (Zofran) 4 mg IVPUSH ONETIME PRN PRN Reason: Nausea/Vomiting Sodium Chloride (Saline Flush) 10 ml FLUSH ASDIRECTED PRN PRN Reason: Keep Vein Open - Infant Interaction Infant Disposition, : in Room with Family Interaction: Holding Feeding: Bottle Fed Support Person: , Mother, Sister - Recovery Exam Fundal Tone: Firm Fundal Level: 2 Fingerbreadths Below Umbilicus Fundal Placement: Midline Lochia Amount: Small Lochia Color: Rubra/Red Perineum Description: Other (see below) Other Perinuem Description: 2nd degree laceration with repair Episiotomy/Laceration: Approximated Bladder Status: Voiding Urinary Elimination: Voided - Exam General: Alert, Oriented, Cooperative GI/Abdominal Exam: Soft, Non-Tender Extremities: Normal Inspection Skin: Warm, Dry, Intact - Problem List & Annotations (1) Postmaturity , 40-42 weeks gestation SNOMED Code(s): 99606512, 983761551 Code(s): O48.0 - POST-TERM Status: Acute Current Visit: Yes (2) GBS (group B Streptococcus carrier), +RV culture, currently SNOMED Code(s): 8004519921235, 784138960, 7092617109058 Code(s): O99.820 - STREPTOCOCCUS B CARRIER STATE COMPLICATING Status: Acute Current Visit: Yes (3) Vaginal delivery SNOMED Code(s): 621836651 Code(s): O80 - ENCOUNTER FOR FULL-TERM UNCOMPLICATED DELIVERY Status: Acute Current Visit: Yes - Problem List Review Problem List Initiated/Reviewed/Updated: Yes - My Orders Last 24 Hours: My Active Orders 11/09/18 22:23 Heat Therapy [OM.PC] PRN 11/10/18 06:54 Ready for Discharge [RC] PER UNIT ROUTINE - Assessment Assessment:: 23 y/o G1 now P1001 PPD#2 from at 40 4/7 wks - Plan Plan:: * Routine cares * Now bottle feeding * Discharge home today
== END 2018-11-10 10:25 | disposition home or self-care (01) | DRG 560 ==
LOC: JD.OB 07:17 → OBSVTOIN 21:46 → JD.OB 21:47
PROVIDERS: ADMIT Obstetrics & Gynecology; ATTEND Obstetrics & Gynecology
PROC: 3E0P7VZ Introduction of Hormone into Female Reproductive, Via Natural or Artificial Opening (ICD-10-PCS; principal; 2018-11-08)
PROC: 10H07YZ Insertion of Other Device into Products of Conception, Via Natural or Artificial Opening (ICD-10-PCS; principal; 2018-11-08)
PROC: 3E033VJ Introduction of Other Hormone into Peripheral Vein, Percutaneous Approach (ICD-10-PCS; principal; 2018-11-08)
PROC: 10907ZC Drainage of Amniotic Fluid, Therapeutic from Products of Conception, Via Natural or Artificial Opening (ICD-10-PCS; principal; 2018-11-08)
PROC: 10E0XZZ Delivery of Products of Conception, External Approach (ICD-10-PCS; principal; 2018-11-08)
PROC: 0KQM0ZZ Repair Perineum Muscle, Open Approach (ICD-10-PCS; principal; 2018-11-08)
PROC: 0U7C7ZZ Dilation of Cervix, Via Natural or Artificial Opening (ICD-10-PCS; principal; 2018-11-08)
PROC: 6A550ZT Pheresis of Cord Blood Stem Cells, Single (ICD-10-PCS; principal; 2018-11-08)
PROC: 00HU33Z Insertion of Infusion Device into Spinal Canal, Percutaneous Approach (ICD-10-PCS; 2018-11-08)
PROC: 3E0R3BZ Introduction of Anesthetic Agent into Spinal Canal, Percutaneous Approach (ICD-10-PCS; 2018-11-08)
DX: O48.0 Post-term pregnancy (principal); O99.824 Streptococcus B carrier state complicating childbirth; Z37.0 Single live birth; Z3A.40 40 weeks gestation of pregnancy; O70.1 Second degree perineal laceration during delivery; O77.0 Labor and delivery complicated by meconium in amniotic fluid; O76 Abnormality in fetal heart rate and rhythm complicating labor and delivery
CPT/HCPCS: 01967; 36415; 51702; 59025; 59409; 85027; 86592; 86850; 86900; 86901; A9270-GY; J2540; J2590; J3010; J3490; J7030; J7120

== ENCOUNTER 2021-03-30 07:23 | Inpatient (IN) | payer BC ==
[~2021-03-30 07:23] MED LIST: Bupivacaine 0.25% 10 ML SDV ONE
[2021-03-30] MEDS ORDERED: Nalbuphine 10 MG/1 ML Vial IVPUSH PRN (07:24)
[2021-03-30] MEDS ORDERED: Sodium Chloride 0.9% 10 ML Syringe FLUSH PRN (07:24)
[2021-03-30] MEDS ORDERED: Ondansetron 4 MG/2 ML SDV IVPUSH PRN (07:24)
--- NOTE | 2021-03-30 07:27 | PCM.LDHP ---
L&D History of Present Illness - General Date of Service: 03/30/21 Admit Problem/Dx: Patient Status Order with Admit Dx/Problem 03/30/21 07:24 Patient Status [ADT] Routine Admission Diagnosis/Problem Admission Diagnosis/Problem Normal in third trimester Source of Information: Patient History Limitations: Reports: No Limitations - History of Present Illness Introduction:: Patient is a 25 y/o at 40 0/7 wks who presents for elective IOL - Related Data Allergies/Adverse Reactions: Allergies Allergy/AdvReac Type Severity Reaction Status Date / Time No Known Allergies Allergy Verified 11/08/18 08:21 Home Medications: Home Meds Vits #93/Iron Fum/FA [ Formula Tablet] 1 tab PO DAILY 11/08/18 [History] Iron,Carb/Vit C/Vit B12/Folic [Iron 100 Plus Tablet] 1 each PO DAILY 03/30/21 [History] Past Medical History - Past Health History Medical/Surgical History: Denies 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: 1 Social & Family History - Family History Family Medical History: No Pertinent Family History - Tobacco Use Tobacco Use Status *Q: Never Tobacco User - Caffeine Use Caffeine Use: Reports: None - Alcohol Use Alcohol Use History: No H&P Review of Systems - Review of Systems: Review Of Systems: See Below General: Reports: No Symptoms Pulmonary: Reports: No Symptoms Cardiovascular: Reports: No Symptoms Gastrointestinal: Reports: No Symptoms Genitourinary: Reports: No Symptoms Musculoskeletal: Reports: No Symptoms Psychiatric: Reports: No Symptoms Neurological: Reports: No Symptoms L&D Exam - Exam Exam: See Below - OB Specific Contraction Intensity: Irritability Movement: Active Heart Tones: Present Heart Tones per Min: 140 Heart Rate (FHR) Variability: Moderate (6-25 bmp) Presentation: Vertex - Cruz Score Cruz Score Cervix Position: Posterior Cruz Score Consistency: Medium Cruz Score Effacement: 51-70% Crzu Score Dilation: 1-2 cm Cruz Score 's Station: -2 Cruz Score Total: 5 - Exam General: Alert, Oriented, Cooperative Lungs: Clear to Auscultation, Normal Respiratory Effort Cardiovascular: Regular Rate, Regular Rhythm GI/Abdominal Exam: Soft, Non-Tender Genitourinary: Normal external exam Extremities: Normal Inspection - Patient Data Result Diagrams: 03/30/21 07:40 - Problem List (1) 40 weeks gestation of SNOMED Code(s): 09420200 ICD Code: Z3A.40 - 40 WEEKS GESTATION OF Status: Acute Current Visit: Yes (2) GBS (group B Streptococcus carrier), +RV culture, currently SNOMED Code(s): 5568583020038, 998141473, 7063293284396 ICD Code: O99.820 - STREPTOCOCCUS B CARRIER STATE COMPLICATING Status: Acute Current Visit: No Problem List Initiated/Reviewed/Updated: Yes Orders Last 24hrs: Active Orders 24 hr Category Date Time Status Patient Status [ADT] Routine ADT 03/30/21 07:24 Ordered Communication Order [RC] ASDIRECTED Care 03/30/21 07:24 Ordered Communication Order [RC] ASDIRECTED Care 03/30/21 07:24 Ordered Communication Order [RC] ASDIRECTED Care 03/30/21 07:24 Ordered Monitoring [RC] INTERMITTENT Care 03/30/21 07:24 Ordered Non Stress Test [RC] PER UNIT ROUTINE Care 03/30/21 07:24 Ordered Notify Provider [RC] ASDIRECTED Care 03/30/21 07:24 Ordered Notify Provider [RC] PRN Care 03/30/21 07:24 Ordered Peripheral IV Care [RC] . DIRECTED Care 03/30/21 07:24 Ordered Up ad Kaylee [RC] ASDIRECTED Care 03/30/21 07:25 Ordered Vaginal Exam [RC] ASDIRECTED Care 03/30/21 07:24 Ordered Vital Signs [RC] ASDIRECTED Care 03/30/21 07:24 Ordered Regular Diet [DIET] Diet 03/30/21 Breakfast Ordered CBC W/O DIFF,HEMOGRAM [HEME] Routine Lab 03/30/21 07:24 Ordered CORONAVIRUS COVID-19 DAWN [MOLEC] Stat Lab 03/30/21 07:26 Ordered HEP C VIRUS AB [REF] Routine Lab 03/30/21 07:24 Ordered RAPID PLASMA REAGIN,RPR [CHEM] Routine Lab 03/30/21 07:24 Ordered TYPE AND SCREEN [BBK] Routine Lab 03/30/21 07:24 Ordered Ampicillin 1 gm Med 03/30/21 07:30 Ordered Sodium Chloride 0.9% [Normal Saline] 100 ml IV Q4H Ampicillin 2 gm Med 03/30/21 07:24 Ordered Sodium Chloride 0.9% [Normal Saline] 100 ml IV ONETIME Lactated Ringers [Ringers, Lactated] 1,000 ml Med 03/30/21 07:30 Ordered IV ASDIRECTED Nalbuphine [Nubain] Med 03/30/21 07:24 Ordered 10 mg IVPUSH Q2H PRN Ondansetron [Zofran] Med 03/30/21 07:24 Ordered 4 mg IVPUSH Q4H PRN Oxytocin/Lactated Ringers [Pitocin in LR 10 Units/1,000 Med 03/30/21 07:30 Ordered ML] 10 unit in 1,000 ml IV .CONTINUOUS Oxytocin/Lactated Ringers [Pitocin in LR 10 Units/1,000 Med 03/30/21 07:30 Ordered ML] 10 unit in 1,000 ml IV TITRATE Sodium Chloride 0.9% [Saline Flush] Med 03/30/21 07:24 Ordered 10 ml FLUSH ASDIRECTED PRN Electronic Heart Tones Internal [WOMSER] Per Unit Oth 03/30/21 07:24 Ordered Routine Peripheral IV Insertion Adult [OM.PC] Routine Oth 03/30/21 07:24 Ordered Resuscitation Status Routine Resus Stat 03/30/21 07:24 Ordered Assessment/Plan Comment:: * Labs to be done * GBS positive, Ampicillin for prophylaxis * Pitocin and then AROM for IOL * Pain management per patient preference * Anticipate
[2021-03-30] MEDS ORDERED: Oxytocin/Lactated Ringers 10 UNIT/1,000 ML BAG IV SCH ×2 (07:30)
[2021-03-30] MEDS ORDERED: Ampicillin 2 GM in Sodium Chloride 0.9% 100 ML IV ONE (08:00)
[2021-03-30] MEDS: Lactated Ringers 1,000 ML IV SCH ×3 (08:01→19:02)
[2021-03-30] MEDS: Ampicillin 1 GM in Sodium Chloride 0.9% 100 ML IV SCH ×3 (12:02→20:03)
[2021-03-30] MEDS ORDERED: diphenhydrAMINE 50 MG/ML SDV IVPUSH PRN (13:55)
[2021-03-30] MEDS ORDERED: Bupivacaine/fentaNYL/NS 100 ML Bag EPIDUR PRN (13:55)
[2021-03-30] MEDS ORDERED: fentaNYL 100 MCG/2 ML SDV EPIDUR PRN (13:55)
[2021-03-30] MEDS ORDERED: ePHEDrine 50 MG/ML SDV IVPUSH PRN (13:55)
--- NOTE | 2021-03-30 17:38 | PCM.PREANE ---
Preanesthetic Assessment - Procedure Proposed Procedure: epidural - Anesthesia/Transfusion/Family Hx Anesthesia History: Prior Anesthesia Without Reaction Family History of Anesthesia Reaction: No Transfusion History: No Prior Transfusion(s) - Review of Systems General: Fatigue Pulmonary: No Symptoms Cardiovascular: No Symptoms Gastrointestinal: Abdominal Pain (labor) Neurological: No Symptoms Other: Reports: None - Physical Assessment Vital Signs: Last Vital Signs Temp 36.3 C 03/30/21 07:24 Pulse 89 03/30/21 08:20 Resp 14 03/30/21 07:24 BP 130/65 03/30/21 08:20 Pulse Ox 99 03/30/21 07:45 Height: 1.75 m Weight: 93.44 kg ASA Class: 2 Mental Status: Alert & Oriented x3 Airway Class: Mallampati = 1 Dentition: Reports: Normal Dentition Thyro-Mental Finger Breadths: 3 Mouth Opening Finger Breadths: 3 ROM/Head Extension: Full Lungs: Clear to Auscultation, Normal Respiratory Effort Cardiovascular: Regular Rate, Regular Rhythm - Lab Values: Laboratory Last Values WBC 8.26 K/mm3 (3.98-10.04) 03/30/21 07:40 RBC 4.12 M/mm3 (3.98-5.22) 03/30/21 07:40 Hgb 10.0 gm/dl (11.2-15.7) L 03/30/21 07:40 Hct 31.3 % (34.1-44.9) L 03/30/21 07:40 MCV 76.0 fl (79.4-94.8) L D 03/30/21 07:40 MCH 24.3 pg (25.6-32.2) L 03/30/21 07:40 MCHC 31.9 g/dl (32.2-35.5) L 03/30/21 07:40 RDW Std Deviation 40.2 fL (36.4-46.3) 03/30/21 07:40 Plt Count 248 K/mm3 (182-369) 03/30/21 07:40 MPV 10.5 fl (9.4-12.3) 03/30/21 07:40 SARS-CoV-2 RNA (DAWN) Negative (NEGATIVE) 03/30/21 07:36 Blood Type O POSITIVE 03/30/21 07:40 Gel Antibody Screen Negative 03/30/21 07:40 - Allergies Allergies/Adverse Reactions: Allergies Allergy/AdvReac Type Severity Reaction Status Date / Time No Known Allergies Allergy Verified 11/08/18 08:21 - Anesthesia Plan Pre-Op Medication Ordered: None - Acknowledgements Anesthesia Type Planned: Epidural Pt an Appropriate Candidate for the Planned Anesthesia: Yes Alternatives and Risks of Anesthesia Discussed w Pt/Guardian: Yes Pt/Guardian Understands and Agrees with Anesthesia Plan: Yes PreAnesthesia Questionnaire - Past Health History Medical/Surgical History: Denies Medical/Surgical History Gastrointestinal History: Reports: GER[employer] SIGNATURE History: Reports: - Infectious Disease History Infectious Disease History: Reports: SARS - SUBSTANCE USE Tobacco Use Status *Q: Never Tobacco User Second Hand Smoke Exposure: Yes Recreational Drug Use History: No - HOME MEDS Home Medications: Home Meds Vits #93/Iron Fum/FA [ Formula Tablet] 1 tab PO DAILY 11/08/18 [History] Iron,Carb/Vit C/Vit B12/Folic [Iron 100 Plus Tablet] 1 each PO DAILY 03/30/21 [History] - CURRENT (IN HOUSE) MEDS Current Meds: Current Medications Diphenhydramine HCl (Diphenhydramine 50 Mg/Ml Sdv) 25 mg IVPUSH Q6H PRN PRN Reason: pruritis Ephedrine Sulfate (Ephedrine 50 Mg/Ml Sdv) 5 mg IVPUSH ASDIRECTED PRN PRN Reason: Hypotension Fentanyl (Fentanyl 100 Mcg/2 Ml Sdv) 100 mcg EPIDUR Q3H PRN PRN Reason: Pain Last Admin: 03/30/21 17:08 Dose: 100 mcg Documented by: Fentanyl/Bupivacaine HCl (Bupivacaine/Fentanyl/Ns 100 Ml Bag) 100 ml EPIDUR ASDIRECTED PRN PRN Reason: Pain Last Admin: 03/30/21 17:08 Dose: 100 ml Documented by: Oxytocin/Lactated Ringer's (Pitocin In Lr 10 Units/1,000 Ml) 10 unit in 1,000 mls @ 12 mls/hr IV TITRATE MP; Protocol Last Titration: 03/30/21 15:57 Dose: 18 munits/min, 108 mls/hr Documented by: Ampicillin Sodium 1 gm/ Sodium (Chloride) 100 mls @ 200 mls/hr IV Q4H MP Last Admin: 03/30/21 16:11 Dose: 200 mls/hr Documented by: Oxytocin/Lactated Ringer's (Pitocin In Lr 10 Units/1,000 Ml) 10 unit in 1,000 mls @ 500 mls/hr IV .CONTINUOUS MP Lactated Ringer's (Ringers, Lactated) 1,000 mls @ 40 mls/hr IV ASDIRECTED MP Last Admin: 03/30/21 14:02 Dose: 40 mls/hr Documented by: Nalbuphine HCl (Nalbuphine 10 Mg/1 Ml Vial) 10 mg IVPUSH Q2H PRN PRN Reason: Pain Ondansetron HCl (Ondansetron 4 Mg/2 Ml Sdv) 4 mg IVPUSH Q4H PRN PRN Reason: Nausea/Vomiting Sodium Chloride (Sodium Chloride 0.9% 10 Ml Syringe) 10 ml FLUSH ASDIRECTED PRN PRN Reason: Keep Vein Open Discontinued Medications Ampicillin Sodium 2 gm/ Sodium (Chloride) 100 mls @ 200 mls/hr IV ONETIME ONE Stop: 03/30/21 08:29 Last Admin: 03/30/21 08:02 Dose: 200 mls/hr Documented by:
[2021-03-30] MEDS ORDERED: Oxytocin/Lactated Ringers 20 UNIT/1,000 ML BAG IV SCH (18:30)
--- NOTE | 2021-03-30 21:00 | PCM.DEL ---
L & D Note - General Info Date of Service: 03/30/21 - Delivery Note Labor: Induced by ARM, Induced by Oxytocin Delivery Outcome: Livebirth Infant Delivery Method: Spontaneous Vaginal Delivery-Single Infant Delivery Mode: Spontaneous Presentation: Right Occiput Anterior (ARABELLA) Nuchal Cord: None Anesthesia Type: Epidural Amniotic Fluid Description: Clear Episiotomy Type: None Laceration: 1st Degree Suture type: Vicryl Suture size: 2-0 Placenta: Intact, Spontaneous Cord: 3 Vessels Estimated Blood Loss: 150 Resuscitation Needed: Yes [place]: Bulb Syringe, Stimulated, Warmed, [place] Used, Warmer Used Delivery Comments (Free Text/Narrative):: Patient found to be complete and began pushing. With maternal pushing effort head delivered from ARABELLA presentation. no nuchal cord present. With gentle downward traction shoulders and body delivered. Infant placed on maternal abdomen. Cord clamped and cut. Cord blood obtained. Placenta allowed time to separate and expelled intact. Inspection of perineum showed a 1st degree laceration which was repaired with a 2-0 vicryl in a single interrupted stitch. - General Info Date of Service: 03/30/21 - Patient Data Vitals - Most Recent: Last Vital Signs Temp 36.3 C 03/30/21 07:24 Pulse 89 03/30/21 08:20 Resp 14 03/30/21 07:24 BP 130/65 03/30/21 08:20 Pulse Ox 99 03/30/21 07:45 Weight - Most Recent: 93.44 kg I&O - Last 24 Hours: Intake & Output 03/30/21 03/30/21 03/30/21 06:59 14:59 22:59 Intake Total 320 Output Total Balance 32@ - Exam Urinary Catheter Total Time: 0Days 0Hours - Problem List & Annotations (1) 40 weeks gestation of SNOMED Code(s): 74243358 Code(s): Z3A.40 - 40 WEEKS GESTATION OF Status: Acute Current Visit: Yes (2) GBS (group B Streptococcus carrier), +RV culture, currently SNOMED Code(s): 1494786529004, 405352613, 8630905507135 Code(s): O99.820 - STREPTOCOCCUS B CARRIER STATE COMPLICATING Status: Acute Current Visit: No (3) Vaginal delivery SNOMED Code(s): 796390042 Code(s): O80 - ENCOUNTER FOR FULL-TERM UNCOMPLICATED DELIVERY Status: Acute Current Visit: No - Problem List Review Problem List Initiated/Reviewed/Updated: Yes - My Orders Last 24 Hours: My Active Orders 03/30/21 Breakfast Regular Diet [DIET] 03/30/21 07:24 Patient Status [ADT] Routine Communication Order [RC] ASDIRECTED Communication Order [RC] ASDIRECTED Notify Provider [RC] ASDIRECTED Notify Provider [RC] PRN Vital Signs [RC] 03,,, Nalbuphine [Nubain] 10 mg IVPUSH Q2H PRN Ondansetron [Zofran] 4 mg IVPUSH Q4H PRN Sodium Chloride 0.9% [Saline Flush] 10 ml FLUSH ASDIRECTED PRN Electronic Heart Tones Internal [WOMSER] Per Unit Routine Peripheral IV Insertion Adult [OM.PC] Routine Resuscitation Status Routine 03/30/21 07:25 Up ad Kaylee [RC] ASDIRECTED 03/30/21 07:30 Lactated Ringers [Ringers, Lactated] 1,000 ml IV ASDIRECTED Oxytocin/Lactated Ringers [Pitocin in LR 10 Units/1,000 ML] 10 unit in 1,000 ml IV .CONTINUOUS Oxytocin/Lactated Ringers [Pitocin in LR 10 Units/1,000 ML] 10 unit in 1,000 ml IV TITRATE 03/30/21 07:40 HEP C VIRUS AB [REF] Routine 03/30/21 12:00 Ampicillin 1 gm Sodium Chloride 0.9% [Normal Saline] 100 ml IV Q4H 03/30/21 18:30 Oxytocin/Lactated Ringers [Pitocin in LR 20 Units/1,000 ML] 20 unit in 1,000 ml IV TITRATE - Assessment Assessment:: PPD#0 - Plan Plan:: * Routine cares * Formula feeding * Discharge home in 1-2 days
[2021-03-30] MEDS ORDERED: Docusate Sodium 100 MG Cap PO PRN (21:43)
[2021-03-30] MEDS ORDERED: Witch Hazel Medicated Pads 40/Jar TOP PRN (21:43)
[2021-03-30] MEDS ORDERED: Benzocaine/Menthol 20%-0.5% Spray 56 GM Canister TOP PRN (21:43)
[2021-03-30] MEDS ORDERED: Acetaminophen 325 MG Tab PO PRN (21:43)
[2021-03-30] MEDS: Ibuprofen 600 MG Tab PO PRN (21:56)
[2021-03-31] MEDS: Ibuprofen 600 MG Tab PO PRN ×2 (06:49→13:58)
[2021-03-31] MEDS ORDERED: Lactated Ringers 1,000 ML IV ONE (08:58)
--- NOTE | 2021-03-31 09:13 | PCM48HPAN ---
Post Anesthesia Note - EVALUATION WITHIN 48HRS OF ANESTHETIC Vital Signs in Normal Range: Yes Patient Participated in Evaluation: Yes Respiratory Function Stable: Yes Airway Patent: Yes Cardiovascular Function Stable: Yes Hydration Status Stable: Yes Pain Control Satisfactory: Yes Nausea and Vomiting Control Satisfactory: Yes Mental Status Recovered: Yes Vital Signs: Last Vital Signs Temp 36.5 C 03/31/21 05:00 Pulse 74 03/31/21 05:00 Resp 16 03/31/21 05:00 BP 113/61 03/31/21 05:00 Pulse Ox 98 03/31/21 05:00 - COMMENTS/OBSERVATIONS Free Text/Narrative:: Noris is resting in bed this morning. She has a mild sore back and has a heating pad in place. Complains of a headache rating it at 4/10. Motrin this morning did provide some relief. Will try to push fluids, IV bolus, caffeine, and rest today. If headache continues Noris understands she may need an epidural blood patch in the future.
--- NOTE | 2021-03-31 10:58 | PCM48HPAN ---
Post Anesthesia Note - EVALUATION WITHIN 48HRS OF ANESTHETIC Vital Signs in Normal Range: Yes Patient Participated in Evaluation: Yes Respiratory Function Stable: Yes Airway Patent: Yes Cardiovascular Function Stable: Yes Hydration Status Stable: Yes Pain Control Satisfactory: Yes Nausea and Vomiting Control Satisfactory: Yes Mental Status Recovered: Yes Vital Signs: Last Vital Signs Temp 36.4 C 03/31/21 07:35 Pulse 66 03/31/21 07:35 Resp 17 03/31/21 07:35 BP 126/65 03/31/21 07:35 Pulse Ox 99 03/31/21 07:35 - COMMENTS/OBSERVATIONS Free Text/Narrative:: Noris is up walking around holding baby. Her headache is now a 1/10. 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 She has no further concerns.
--- NOTE | 2021-03-31 11:09 | PCM.SN.2 ---
- Free Text/Narrative Note: 03/31/2022 S: Patient doing well. Only issue is some back pain. Minimal bleeding. O: Gen: NAD AB: soft/non tender A/P: PPD#1 Routine cares Bottle feeding Desires discharge at 24 hours if infant cleared from Peds. Otherwise discharge tomorrow Sravani Irving MD
--- NOTE | 2021-04-02 14:55 | PCM.DCSUM1 ---
Discharge Summary - Discharge Data Discharge Date: 03/31/21 Discharge Disposition: Home, Self-Care 01 Condition: Good - Referral to Home Health Primary Care Physician: Sravani Irving MD - Discharge Diagnosis/Problem(s) (1) 40 weeks gestation of SNOMED Code(s): 69669527 ICD Code: Z3A.40 - 40 WEEKS GESTATION OF Status: Acute (2) GBS (group B Streptococcus carrier), +RV culture, currently SNOMED Code(s): 3899251552374, 581219173, 2203825420333 ICD Code: O99.820 - STREPTOCOCCUS B CARRIER STATE COMPLICATING Status: Acute (3) Vaginal delivery SNOMED Code(s): 372994724 ICD Code: O80 - ENCOUNTER FOR FULL-TERM UNCOMPLICATED DELIVERY Status: Acute - Patient Summary/Data Complications: None Consults: None Recommended Follow-up Testing/Procedures: Follow up in 3 weeks for check Hospital Course: 25 y/o at 40 0/7 wks who presented for IOL. This was done with pitocin and AROM. Progressed well to complete dilation and underwent an uncomplicated . See delivery note. did well and was discharged home on PPD#1 - Patient Instructions Diet: Regular Diet as Tolerated Activity: As Tolerated Activity, Other: Pelvic rest for 6 weeks Driving: May Drive Today Showering/Bathing: May Shower Showering/Bathing, Other: May Bathe Notify Provider of: Fever, Increased Pain, Swelling and Redness, Drainage, Nausea and/or Vomiting - Discharge Plan *PRESCRIPTION DRUG MONITORING PROGRAM REVIEWED*: No *COPY OF PRESCRIPTION DRUG MONITORING REPORT IN PATIENT [place]: No Home Medications: Home Meds Vits #93/Iron Fum/FA [ Formula Tablet] 1 tab PO DAILY 11/08/18 [History] Ibuprofen [Motrin] 600 mg PO Q6H PRN tablet 03/31/21 [Rx] Patient Handouts: Care After Vaginal Delivery Referrals: Sravani Irving MD [Primary Care Provider] - (3 weeks for check ) - Discharge Summary/Plan Comment DC Time >30 min.: No - Patient Data Vitals - Most Recent: Last Vital Signs Temp 36.7 C 03/31/21 20:35 Pulse 76 03/31/21 20:35 Resp 14 03/31/21 20:35 BP 121/70 03/31/21 20:35 Pulse Ox 100 03/31/21 20:35 Weight - Most Recent: 93.44 kg Med Orders - Current: Current Medications Discontinued Medications Acetaminophen (Acetaminophen 325 Mg Tab) 650 mg PO Q4H PRN PRN Reason: mild pain or fever Last Admin: 03/31/21 09:16 Dose: 650 mg Documented by: Benzocaine/Menthol (Benzocaine/Menthol 20%-0.5% [place] 56 Gm Canister) 0 gm TOP ASDIRECTED PRN PRN Reason: Perineal Comfort Measure Last Admin: 03/30/21 21:55 Dose: 1 can Documented by: Bupivacaine HCl (Bupivacaine 0.25% 10 Ml Sdv) 10 ml .ROUTE .STK-MED ONE Stop: 03/30/21 00:01 Diphenhydramine HCl (Diphenhydramine 50 Mg/Ml Sdv) 25 mg IVPUSH Q6H PRN PRN Reason: pruritis Docusate Sodium (Docusate Sodium 100 Mg Cap) 100 mg PO BID PRN PRN Reason: Constipation Ephedrine Sulfate (Ephedrine 50 Mg/Ml Sdv) 5 mg IVPUSH ASDIRECTED PRN PRN Reason: Hypotension Fentanyl (Fentanyl 100 Mcg/2 Ml Sdv) 100 mcg EPIDUR Q3H PRN PRN Reason: Pain Last Admin: 03/30/21 17:08 Dose: 100 mcg Documented by: Fentanyl/Bupivacaine HCl (Bupivacaine/Fentanyl/Ns 100 Ml Bag) 100 ml EPIDUR ASDIRECTED PRN PRN Reason: Pain Last Admin: 03/30/21 17:08 Dose: 100 ml Documented by: Oxytocin/Lactated Ringer's (Pitocin In Lr 10 Units/1,000 Ml) 10 unit in 1,000 mls @ 12 mls/hr IV TITRATE MP; Protocol Last Titration: 03/30/21 19:35 Dose: 26 munits/min, 156 mls/hr Documented by: Ampicillin Sodium 2 gm/ Sodium (Chloride) 100 mls @ 200 mls/hr IV ONETIME ONE Stop: 03/30/21 08:29 Last Admin: 03/30/21 08:02 Dose: 200 mls/hr Documented by: Ampicillin Sodium 1 gm/ Sodium (Chloride) 100 mls @ 200 mls/hr IV Q4H MP Last Admin: 03/30/21 20:03 Dose: 200 mls/hr Documented by: Oxytocin/Lactated Ringer's (Pitocin In Lr 10 Units/1,000 Ml) 10 unit in 1,000 mls @ 500 mls/hr IV .CONTINUOUS MP Last Admin: 03/30/21 21:00 Dose: 500 mls/hr Documented by: Lactated Ringer's (Ringers, Lactated) 1,000 mls @ 40 mls/hr IV ASDIRECTED MP Last Admin: 03/30/21 19:02 Dose: 40 mls/hr Documented by: Oxytocin/Lactated Ringer's (Pitocin In Lr 20 Units/1,000 Ml) 20 unit in 1,000 mls @ 66 mls/hr IV TITRATE MP; Protocol Lactated Ringer's (Ringers, Lactated) 1,000 mls @ 999 mls/hr IV .BOLUS ONE Stop: 03/31/21 09:58 Last Admin: 03/31/21 09:16 Dose: 999 mls/hr Documented by: Ibuprofen (Ibuprofen 600 Mg Tab) 600 mg PO Q6H PRN PRN Reason: Mild pain or fever Last Admin: 03/31/21 13:58 Dose: 600 mg Documented by: Nalbuphine HCl (Nalbuphine 10 Mg/1 Ml Vial) 10 mg IVPUSH Q2H PRN PRN Reason: Pain Ondansetron HCl (Ondansetron 4 Mg/2 Ml Sdv) 4 mg IVPUSH Q4H PRN PRN Reason: Nausea/Vomiting Sodium Chloride (Sodium Chloride 0.9% 10 Ml Syringe) 10 ml FLUSH ASDIRECTED PRN PRN Reason: Keep Vein Open [place] ([place] Medicated Pads 40/Jar) 1 pad TOP ASDIRECTED PRN PRN Reason: Perineal Comfort Measure Last Admin: 03/30/21 21:55 Dose: 1 tub Documented by:
== END 2021-03-31 21:11 | disposition home or self-care (01) | DRG 560 ==
LOC: JD.OB 07:23 → OBSVTOIN 20:57 → JD.OB 20:58
PROVIDERS: ADMIT Obstetrics & Gynecology; ATTEND Obstetrics & Gynecology
PROC: 10E0XZZ Delivery of Products of Conception, External Approach (ICD-10-PCS; principal; 2021-03-30)
PROC: 10907ZC Drainage of Amniotic Fluid, Therapeutic from Products of Conception, Via Natural or Artificial Opening (ICD-10-PCS; 2021-03-30)
PROC: 0HQ9XZZ Repair Perineum Skin, External Approach (ICD-10-PCS; 2021-03-30)
PROC: 3E033VJ Introduction of Other Hormone into Peripheral Vein, Percutaneous Approach (ICD-10-PCS; 2021-03-30)
PROC: 3E0R3BZ Introduction of Anesthetic Agent into Spinal Canal, Percutaneous Approach (ICD-10-PCS; 2021-03-30)
DX: O99.824 Streptococcus B carrier state complicating childbirth (principal); Z3A.40 40 weeks gestation of pregnancy; Z37.0 Single live birth; O70.0 First degree perineal laceration during delivery; O99.892 Other specified diseases and conditions complicating childbirth; R51.9 Headache, unspecified; Z20.822 Contact with and (suspected) exposure to COVID-19
CPT/HCPCS: 01967; 36415; 51702; 59025; 59409; 85027; 86592; 86803; 86850; 86900; 86901; A9270-GY; J0290; J2590; J3010; J3490; J7120; U0002